=== PATIENT | male | born 1950 | race Caucasian/White ===

== ENCOUNTER 2017-12-22 10:38 | Inpatient (IN) | payer OTHER ==
[2017-12-22 10:47] VITALS: BMI 23.4
--- NOTE | 2017-12-22 12:36 | PDOC ---
History of Present Illness - General Chief Complaint: Weakness Stated Complaint: DIZZINESS Past History - Past Medical History Allergies/Adverse Reactions: Allergies Allergy/AdvReac Type Severity Reaction Status Date / Time No Known Allergies Allergy Verified 12/22/17 10:44 Home Medications: Ambulatory Orders Amox-Tr/K Cl [Augmentin 875-125mg Tablet -] 1 tab PO BID #14 tablet 09/26/13 Asthma: Yes COPD: No Other medical history: [place] - Suicide/Smoking/Psychosocial Hx Smoking History: Never smoked Have you smoked in the past 12 months: No Information on smoking cessation initiated: No Hx Alcohol Use: No Drug/Substance Use Hx: No Substance Use Type: None *Physical Exam - Vital Signs Last Vital Signs Temp Pulse Resp BP Pulse Ox 98.3 F 76 18 151/83 100 12/22/17 10:44 12/22/17 10:44 12/22/17 10:44 12/22/17 10:44 12/22/17 10:44
--- NOTE | 2017-12-22 12:37 | PDOC ---
Attending Attestation - HPI HPI: The patient is a 67 year old male accompanied with family friend with no significant past medical history who presents to the emergency department complaining of right sided weakness since Friday (12/20). 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 The patient reports chronic episodes of dizziness and numbness to the right side of the body and associated symptom of generalized weakness. The patient denies abdominal pain. The patient denies chest pain, shortness of breath, and headache. Denies fevers, chills, nausea, vomiting, diarrhea, and constipation. Denies dysuria, frequency, urgency, and hematuria. Allergies: NKA Social history: No reported cigarette, alcohol, or drug use. - Physicial Exam PE: Vitals: Triage Vital signs reviewed General Appearance: no acute distress, well nourished well developed, Head: Atraumatic, normocephalic Neck: Supple;No Nuchal rigidity Chest Wall: Nontender Cardiac: Regular rate and rhythm, no murmurs, no rubs, no gallops, Lungs: Clear to auscultation bilateral, good air movement bilaterally Abdomen: Soft, nondistended, normal bowel sounds, nontender to palpation Rectal: Exam deferred. 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 AOX3; Cranial Nerves 2-12 grossly c intact, Strength intact to all extremities, Sensation intact to all extremities, gait normal Psych: normal mood, normal affect - Medical Decision Making The patient is a 67 year old male accompanied with family friend with no significant past medical history who presents to the emergency department complaining of right sided weakness since Friday. Plan: -CAT SCAN -Lab -Consult with neurologist <Feliz Rhodes - Last Filed: 12/22/17 16:21> - Resident Resident Name: Jolanta Greenberg I - ED Attending Attestation I have performed the following: I have examined & evaluated the patient, The case was reviewed & discussed with the resident, I agree w/resident's findings & plan, Exceptions are as noted - Medical Decision Making Right-sided weakness since Friday patient with slightly unsteady gait on examination only focal neurologic finding was very slight decrease in right hand tunnel worker strength, slight difficulty with finger to nose and a subjective sensation of unsteadiness although patient ambulating steadily CT with evidence of small nonhemorrhagic infarct. We will observe overnight for neurology consultation and further management of small cerebellar stroke. full dose aspirin ordered <Beny Langford - Last Filed: 12/22/17 16:53> NIH Stroke Scale - Initial Evaluation Level of consciousness: Alert Ask patient the month and their age: Answers both correctly Ask patient to open & close eyes; make fist and let go: Obeys both correctly Best gaze (horizontal eye movement): Normal Visual field testing: No visual field loss Facial paresis (Show teeth/raise eyebrows/close eyes tight): Normal symmetrical movement Motor Function: Left Arm: Normal Motor Function: Right Arm: Normal (extends arm 90 (or 45) degrees for 10 seconds without drift Motor Function: Left Leg: Normal (extends leg 30 degrees for 5 seconds without drift) Motor Function: Right Leg: Normal (extends leg 30 degrees for 5 seconds without drift) Limb Ataxia: Present in one limb Sensory(Use pinprick test arms,legs,trunk,face/side to side): Normal Best language (Describe picture, name items, read sentences): No Aphasia Dysarthria (read several words): Normal articulation Extinction and Inattention: No abnormality - Total Score NIH Stroke Scale Score: 1 <Beny Langford - Last Filed: 12/22/17 16:53> Attestations - Attestations Documentation prepared by Feliz Rhodes, acting as senior medical billing specialist for Beny Langford MD. <Feliz Rhodes - Last Filed: 12/22/17 16:21> - Attestations Physician Attestation: 12/22/17 16:49 <Beny Langford - Last Filed: 12/22/17 16:53>
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
[2017-12-22 14:22] LABS: BASO % 1.1 % (0-2.0); EOS % 1.5 % (0-4.5); HEMATOCRIT 45.7 % (35.4-49); HEMOGLOBIN 15.8 GM/dL (11.7-16.9); LYMPH % 11.8 % (8-40); MCH 30.2 pg (25.7-33.7); MCHC 34.7 g/dl (32.0-35.9); MEAN CELL VOLUME 87.1 fl (80-96); MEAN PLT VOLUME 8.8 fl (7.5-11.1); MONO % 4.9 % (3.8-10.2); NEUT % 80.7 % (42.8-82.8); PLATELET COUNT 158 K/MM3 (134-434); RBC 5.24 M/mm3 (4.00-5.60); WHITE BLOOD COUNT 7.1 K/mm3 (4.0-10.0)
[2017-12-22 14:37] LABS: ALBUMIN 4.2 g/dl (3.4-5.0); ANION GAP 5 (8-16); BILIRUBIN,TOTAL 0.7 mg/dL (0.2-1.0); BLOOD UREA NITROGEN 17 mg/dL (7-18); CHLORIDE 108 mmol/L (98-107); CO2 28 mmol/L (21-32); CREATININE 1.1 mg/dL (0.7-1.3); GLUCOSE,RANDOM 107 mg/dL (74-106); SGOT/AST 15 U/L (15-37); SGPT/ALT 25 U/L (12-78); SODIUM 141 mmol/L (136-145); TOT PROT 7.2 g/dl (6.4-8.2)
[2017-12-22 14:39] LABS: CHOLESTEROL 238 mg/dL (50-200); TRIGLYCERIDES 82 mg/dL (35-160)
[2017-12-22 14:40] LABS: ALK PHOS 84 U/L (45-117)
[2017-12-22 14:42] LABS: HDL CHOLESTEROL 74 mg/dL (40-60)
[2017-12-22 14:43] LABS: INR 1.05 (0.82-1.09); PROTHROMBIN TIME (PATIENT) 11.9 SEC (9.98-11.88)
[2017-12-22] MEDS ORDERED: ASPIRIN 81 MG CHEWABLE TABLETS PO ONE (15:23)
[2017-12-22] MEDS ORDERED: ASPIRIN 81 MG CHEWABLE TABLETS ONE ×2 (16:27→17:30)
[2017-12-22] MEDS ORDERED: ASPIRIN 325 MG ENTERIC COATED TABLET (FP) PO ONE (17:00)
[2017-12-22 17:27] LABS: URINE APPEARANCE CLEAR; URINE BILIRUBIN NEGATIVE (<2.0 mg/dL); URINE COLOR STRAW; URINE GLUCOSE (UA) NEGATIVE (NEGATIVE); URINE KETONE NEGATIVE (NEGATIVE); URINE LEUK ESTERASE NEGATIVE (NEGATIVE); URINE NITRITE NEGATIVE (NEGATIVE); URINE PROTEIN NEGATIVE (NEGATIVE); URINE UROBILINOGEN NEGATIVE mg/dL (0.2-1.0)
--- NOTE | 2017-12-22 17:40 | CON.NEURO ---
Consult - Alcohol/Substance Use Hx Alcohol Use: No - Smoking History Smoking history: Never smoked Have you smoked in the past 12 months: No Home Medications - Allergies Allergies/Adverse Reactions: Allergies Allergy/AdvReac Type Severity Reaction Status Date / Time No Known Allergies Allergy Verified 12/22/17 10:44 - Home Medications Home Medications: Ambulatory Orders NK [No Known Home Medication] 12/22/17 Physical Exam-Neuro Vital Signs: Vital Signs Temperature 98.2 F 12/22/17 15:22 Pulse Rate 72 12/22/17 15:22 Respiratory Rate 16 12/22/17 15:22 Blood Pressure 165/81 12/22/17 15:22 O2 Sat by Pulse Oximetry (%) 97 12/22/17 15:22 Labs: CBC, BMP 12/22/17 13:49 12/22/17 13:49 INR, PTT INR 1.05 (0.82-1.09) 12/22/17 13:49 Assessment/Plan cc Difficulty with right arm weakness and slurring of speech. HPI 67 year old male , was interview with his girlfriend at his side He denies taking any medication on regular basis or any medical history in past. 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 He developed right sided weakness and also slurring of speech. He is from [facility]. He feels heis improving, and he lives with his girl friend. He also have recurrent dizziness, which he describes lightheadedness specially standing up. Patient has ct head and it was unremarkable and his nih score was zero as per the ED records. 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
--- NOTE | 2017-12-22 20:25 | HP ---
Admitting History and Physical - Primary Care Physician PCP: Patti Jimenes - Admission Chief Complaint: R side weakness, slurred speech History of Present Illness: 67 year old male accompanied with family friend with no significant past medical history who presents to the emergency department complaining of right sided weakness since Friday night (12/20). 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 The patient reports chronic episodes of dizziness and numbness to the right side of the body and associated symptom of generalized weakness. The patient denies abdominal pain. The patient denies chest pain, shortness of breath, and headache. Denies fevers, chills, nausea, vomiting, diarrhea, and constipation. Denies dysuria, frequency, urgency, and hematuria. - Smoking History Smoking history: Never smoked Have you smoked in the past 12 months: No - Alcohol/Substance Use Hx Alcohol Use: No Home Medications - Allergies Allergies/Adverse Reactions: Allergies Allergy/AdvReac Type Severity Reaction Status Date / Time No Known Allergies Allergy Verified 12/22/17 10:44 - Home Medications Home Medications: Ambulatory Orders Aspirin [ASA -] 81 mg PO DAILY #30 tab.chew 12/24/17 Atorvastatin Ca [Lipitor] 20 mg PO HS #30 tablet 12/24/17 Physical Examination Vital Signs: Vital Signs Temperature 98.4 F 12/22/17 18:39 Pulse Rate 86 12/22/17 18:39 Respiratory Rate 16 12/22/17 18:39 Blood Pressure 124/78 12/22/17 18:39 O2 Sat by Pulse Oximetry (%) 98 12/22/17 18:39 Constitutional: Yes: No Distress HENT: Yes: Atraumatic Neck: Yes: Supple Cardiovascular: Yes: Regular Rate and Rhythm Respiratory: Yes: CTA Bilaterally Gastrointestinal: Yes: Normal Bowel Sounds Extremities: Yes: WNL Edema: No Peripheral Pulses WNL: Yes Neurological: Yes: Alert, Oriented ...Motor Strength: RUE (12/18) Labs: CBC, BMP 12/22/17 13:49 12/22/17 13:49 Imaging - Results Cat Scan: Report Reviewed Problem List - Problems (1) CVA (cerebral vascular accident) Assessment/Plan: doing well speech better R arm little weak Code(s): I63.9 - CEREBRAL INFARCTION, UNSPECIFIED Qualifiers: CVA mechanism: unspecified Qualified Code(s): I63.9 - Cerebral infarction, unspecified (2) Weakness Assessment/Plan: R arm weakness,pt feels it but able to work with it Code(s): R53.1 - WEAKNESS Assessment/Plan Laboratory Tests 12/22/17 12/22/17 12/22/17 13:49 13:49 13:49 WBC 7.1 RBC 5.24 Hgb 15.8 D Hct 45.7 MCV 87.1 MCH 30.2 MCHC 34.7 RDW 14.0 Plt Count 158 MPV 8.8 Neutrophils % 80.7 Lymphocytes % 11.8 Monocytes % 4.9 Eosinophils % 1.5 Basophils % 1.1 PT with INR 11.90 H INR 1.05 Sodium 141 Potassium 4.0 Chloride 108 H Carbon Dioxide 28 Anion Gap 5 L BUN 17 D Creatinine 1.1 Creat Clearance w eGFR > 60 Random Glucose 107 H D Calcium 9.0 Total Bilirubin 0.7 D AST 15 D ALT 25 Alkaline Phosphatase 84 Creatine Kinase Creatine Kinase Index CK-MB (CK-2) Troponin I < 0.02 Total Protein 7.2 Albumin 4.2 Triglycerides Cholesterol Total LDL Cholesterol HDL Cholesterol Urine Color Urine Appearance Urine pH Ur Specific [place] Urine Protein Urine Glucose (UA) Urine Ketones Urine Blood Urine Nitrite Urine Bilirubin Urine Urobilinogen Ur Leukocyte Esterase Blood Type Antibody Screen 12/22/17 12/22/17 12/22/17 13:49 14:30 19:25 WBC RBC Hgb Hct MCV MCH MCHC RDW Plt Count MPV Neutrophils % Lymphocytes % Monocytes % Eosinophils % Basophils % PT with INR INR Sodium Potassium Chloride Carbon Dioxide Anion Gap BUN Creatinine Creat Clearance w eGFR Random Glucose Calcium Total Bilirubin AST ALT Alkaline Phosphatase Creatine Kinase 152 Creatine Kinase Index 1.4 CK-MB (CK-2) 2.150 Troponin I < 0.02 Total Protein Albumin Triglycerides 82 Cholesterol 238 H Total LDL Cholesterol 151 H HDL Cholesterol 74 H Urine Color Straw Urine Appearance Clear Urine pH 5.0 Ur Specific [place] 1.012 Urine Protein Negative Urine Glucose (UA) Negative Urine Ketones Negative Urine Blood Negative Urine Nitrite Negative Urine Bilirubin Negative Urine Urobilinogen Negative Ur Leukocyte Esterase Negative Blood Type B POSITIVE Antibody Screen Negative
[2017-12-22] MEDS: SODIUM CHLORIDE 1,000 ML IV SCH (20:40)
--- NOTE | 2017-12-22 23:42 | EKG ---
Test Reason : Blood Pressure : / mmHG Vent. Rate : 066 BPM Atrial Rate : 066 BPM P-R Int : 150 ms QRS Dur : 080 ms QT Int : 378 ms P-R-T Axes : 076 034 042 degrees QTc Int : 396 ms SINUS RHYTHM WITH PREMATURE SUPRAVENTRICULAR COMPLEXES OTHERWISE NORMAL ECG NO PREVIOUS ECGS AVAILABLE Confirmed by ELSIE MOREIRA, GREER ([id number]) on 12/22/2017 11:41:53 PM Referred By: Confirmed By:GREER ZIMMERMAN MD
[2017-12-23 08:03] LABS: MAGNESIUM 2.3 mg/dL (1.8-2.4); PHOSPHOROUS 3.2 mg/dL (2.5-4.9)
[2017-12-23] MEDS ORDERED: ASPIRIN 81 MG CHEWABLE TABLETS ONE (10:13)
[2017-12-23] MEDS: ASPIRIN 81 MG CHEWABLE TABLETS PO SCH (10:17)
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
--- NOTE | 2017-12-23 17:51 | PN ---
Progress Note (short form) - Note Progress Note: 67 year old male was brought to hospital by his grild friend for right arm weakness. He denies taking any medication on regular basis or any medical history in past. 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 He developed right sided weakness and also slurring of speech. He is from [facility]. He feels heis improving, and he lives with his girl friend. He also have recurrent dizziness. 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
--- NOTE | 2017-12-23 18:15 | PN ---
Progress Note, Physician - Current Medication List Current Medications: Active Medications Aspirin (Asa -) 81 mg PO DAILY [facility] Last Admin: 12/23/17 10:17 Dose: 81 mg Atorvastatin Calcium (Lipitor -) 20 mg PO [facility] Sodium Chloride (Normal Saline -) 1,000 mls @ 75 mls/hr IV ASDIR [facility] Last Admin: 12/22/17 20:40 Dose: 75 mls/hr - Objective Vital Signs: Vital Signs Temperature 98.3 F 12/23/17 07:18 Pulse Rate 65 12/23/17 16:07 Respiratory Rate 18 12/23/17 16:07 Blood Pressure 159/85 12/23/17 16:07 O2 Sat by Pulse Oximetry (%) 98 12/23/17 16:07 Constitutional: Yes: No Distress HENT: Yes: Atraumatic Neck: Yes: Supple Cardiovascular: Yes: Regular Rate and Rhythm Respiratory: Yes: CTA Bilaterally Gastrointestinal: Yes: Normal Bowel Sounds Extremities: Yes: WNL Labs: CBC, BMP 12/22/17 13:49 12/22/17 13:49 INR, PTT INR 1.05 (0.82-1.09) 12/22/17 13:49 Problem List - Problems (1) CVA (cerebral vascular accident) Assessment/Plan: doing well Code(s): I63.9 - CEREBRAL INFARCTION, UNSPECIFIED Qualifiers: CVA mechanism: unspecified Qualified Code(s): I63.9 - Cerebral infarction, unspecified (2) Weakness Assessment/Plan: R arm weakness, physical therapy Code(s): R53.1 - WEAKNESS
[2017-12-23] MEDS ORDERED: ATORVASTATIN CA 20 MG TABLET (FP) PO SCH (22:00)
[2017-12-23] MEDS: SODIUM CHLORIDE 1,000 ML IV SCH (23:02)
[2017-12-24] MEDS: SODIUM CHLORIDE 1,000 ML IV SCH (06:32)
[2017-12-24] MEDS ORDERED: PT OWN MED DRAWER 7, Y5N ONE (09:03)
[2017-12-24] MEDS ORDERED: INSULIN (LEVEMIR) 100 UNITS/ML UNITS SQ ONE (09:03)
--- NOTE | 2017-12-24 09:06 | PN ---
Progress Note (short form) - Note Progress Note: 67 year old male , came to hospital for right arm and leg weakness and slurring of speech. 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 He developed right sided weakness and also slurring of speech. His mri of brain showed left Basal ganglia infarct, carotid ultrasound was unremarkable. He is on aspirin and statin. 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 Plan- continue aspirin and statin speech note appreciated and planning to do Barium swallow Continue PT, speech and DVT prophylaxis Thanking you so much Mian Larios MD
[2017-12-24] MEDS: ASPIRIN 81 MG CHEWABLE TABLETS PO SCH (09:20)
[2017-12-24 12:20] VITALS: BP 142/81; PULSE 70; TEMP 98.4
--- NOTE | 2017-12-24 12:26 | DS ---
Physical Examination Vital Signs: Vital Signs Temperature 98.4 F 12/24/17 10:00 Pulse Rate 70 12/24/17 10:00 Respiratory Rate 18 12/24/17 10:00 Blood Pressure 142/81 12/24/17 10:00 O2 Sat by Pulse Oximetry (%) 98 12/24/17 10:00 Constitutional: Yes: No Distress HENT: Yes: Atraumatic Cardiovascular: Yes: Regular Rate and Rhythm Respiratory: Yes: CTA Bilaterally Gastrointestinal: Yes: Normal Bowel Sounds Extremities: Yes: WNL Neurological: Yes: Alert, Oriented Labs: CBC, BMP 12/22/17 13:49 12/22/17 13:49 Discharge Summary Reason For Visit: CVA Current Active Problems CVA (cerebral vascular accident) (Acute) Weakness (Acute) Condition: Stable - Instructions Disposition: HOME HEALTH CARE - Home Medications Comprehensive Discharge Medication List: Ambulatory Orders Aspirin [ASA -] 81 mg PO DAILY #30 tab.chew 12/24/17 Atorvastatin Ca [Lipitor] 20 mg PO HS #30 tablet 12/24/17
== END 2017-12-24 16:15 | disposition home health service (06) | DRG 65 ==
LOC: JER 10:38 → JERBED 15:52 → J4W 12-24 02:08
PROVIDERS: ADMIT Internal Medicine; ATTEND Internal Medicine
DX: I63.9 Cerebral infarction, unspecified (principal); G81.91 Hemiplegia, unspecified affecting right dominant side; R47.81 Slurred speech
CPT/HCPCS: 36415; 70450-TC; 70551-TC; 71045-TC-FY; 80053; 81003; 82465; 82550; 82553; 83718; 83721; 83735; 84100; 84478; 84484; 85025; 85610; 86850; 86900; 86901; 87086; 93005; 93010; 93306-TC; 93880-TC; 97116-GP; 97161-GP; 99285-25; J7030

== ENCOUNTER 2022-10-20 18:01 | Inpatient (IN) | payer OTHER ==
[2022-10-20] MEDS ORDERED: ADENOSINE 6 MG/2 ML VIAL IVPUSH ONE ×2 (18:16→18:23)
[2022-10-20] MEDS ORDERED: SODIUM CHLORIDE 0.9% 500 ML INFUS.BAG IV ONE (18:38)
[2022-10-20 18:45] LABS: BASO % 0.4 % (0-2.0); EOS % 2.6 % (0-4.5); HEMATOCRIT 41.9 % (35.4-49); HEMOGLOBIN 14.1 GM/dL (11.7-16.9); LYMPH % 15.1 % (8-40); MCH 29.1 pg (25.7-33.7); MCHC 33.6 g/dl (32.0-35.9); MEAN CELL VOLUME 86.7 fl (80-96); MEAN PLT VOLUME 8.1 fl (7.5-11.1); MONO % 9.7 % (3.8-10.2); NEUT % 72.2 % (42.8-82.8); PLATELET COUNT 162 10^3/uL (134-434); RBC 4.84 M/mm3 (4.00-5.60); RDW 14.9 % (11.9-15.9); WHITE BLOOD COUNT 5.4 K/mm3 (4.0-10.0)
[2022-10-20 19:01] LABS: CALCIUM 8.6 mg/dL (8.5-10.1)
[2022-10-20 19:02] LABS: ALBUMIN 3.6 g/dl (3.4-5.0); BLOOD UREA NITROGEN 18.8 mg/dL (7-18)
[2022-10-20 19:05] LABS: CREATININE 1.2 mg/dL (0.55-1.3)
[2022-10-20 19:06] LABS: TOT PROT 6.5 g/dl (6.4-8.2)
[2022-10-20 19:07] LABS: BILIRUBIN,TOTAL 1.1 mg/dL (0.2-1)
[2022-10-20 19:35] LABS: INR 1.2 (0.83-1.09); PROTHROMBIN TIME (PATIENT) 13.9 SEC (9.7-13.0)
[2022-10-21 02:02] LABS: OPIATES, URI NEGATIVE (NEGATIVE); PHENCYCLIDINE,URINE NEGATIVE (NEGATIVE); URINE BENZODIAZEPINES NEGATIVE (NEGATIVE)
[2022-10-21 02:28] LABS: COCAINE, UR NEGATIVE (NEGATIVE); METHADONE, UR NEGATIVE (NEGATIVE); URINE AMPHETAMINES NEGATIVE (NEGATIVE); URINE BARBITURATES NEGATIVE (NEGATIVE)
[2022-10-21 02:34] LABS: PH,URINE 6.5 (5.0-8.0); URINE APPEARANCE CLEAR; URINE BILIRUBIN NEGATIVE (NEGATIVE); URINE COLOR YELLOW; URINE GLUCOSE (UA) NEGATIVE (NEGATIVE); URINE KETONE NEGATIVE (NEGATIVE); URINE LEUK ESTERASE NEGATIVE (NEGATIVE); URINE NITRITE NEGATIVE (NEGATIVE); URINE PROTEIN NEGATIVE (NEGATIVE)
[2022-10-21] MEDS ORDERED: METOPROLOL TARTRATE 25 MG TABLET (FP) ONE (04:27)
[2022-10-21] MEDS: METOPROLOL TARTRATE 25 MG TABLET (FP) PO SCH ×3 (04:30→23:05)
[2022-10-21 08:13] LABS: BASO % 0.6 % (0-2.0); EOS % 6.9 % (0-4.5); HEMATOCRIT 39.9 % (35.4-49); MCH 29.8 pg (25.7-33.7); MEAN PLT VOLUME 8.2 fl (7.5-11.1); MONO % 9.5 % (3.8-10.2); PLATELET COUNT 161 10^3/uL (134-434); RBC 4.69 M/mm3 (4.00-5.60); RDW 14.8 % (11.9-15.9); WHITE BLOOD COUNT 4.3 K/mm3 (4.0-10.0)
[2022-10-21 08:36] LABS: ALBUMIN 3.2 g/dl (3.4-5.0); BLOOD UREA NITROGEN 14.8 mg/dL (7-18); CALCIUM 8.4 mg/dL (8.5-10.1); MAGNESIUM 2.1 mg/dL (1.8-2.4)
[2022-10-21 08:38] LABS: PHOSPHOROUS 3.2 mg/dL (2.5-4.9)
[2022-10-21 08:39] LABS: BILIRUBIN,TOTAL 0.9 mg/dL (0.2-1); TOT PROT 5.7 g/dl (6.4-8.2)
[2022-10-21] MEDS ORDERED: metoPROLOL SUCCINATE 25 MG TAB.SR.24H (FP) PO ONE (16:40)
[2022-10-22] MEDS: METOPROLOL TARTRATE 25 MG TABLET (FP) PO SCH ×2 (09:54→21:15)
[2022-10-23 03:35] VITALS: RESP 18
[2022-10-23 08:40] VITALS: BP 146/89; PULSE 66; TEMP 98.3
[2022-10-23] MEDS: METOPROLOL TARTRATE 25 MG TABLET (FP) PO SCH (09:09)
== END 2022-10-23 09:51 | disposition home or self-care (01) | DRG 309 ==
LOC: JER 18:01 → JERBED 23:53 → J4W 10-22 01:25
PROVIDERS: ADMIT Internal Medicine; ATTEND Internal Medicine
PROC: 5A2204Z Restoration of Cardiac Rhythm, Single (ICD-10-PCS; principal; 2022-10-20)
DX: I47.1 Supraventricular tachycardia (principal); I24.8 Other forms of acute ischemic heart disease; I69.351 Hemiplegia and hemiparesis following cerebral infarction affecting right dominant side; I10 Essential (primary) hypertension; E78.5 Hyperlipidemia, unspecified; K40.90 Unilateral inguinal hernia, without obstruction or gangrene, not specified as recurrent
CPT/HCPCS: 0241U-QW; 36415; 71045-TC-FY; 74177-TC; 76870-TC; 80053; 80307; 81003; 83036; 83735; 84100; 84484; 85025; 85610; 85730; 93005; 93010; 93306-TC; 99291; Q9967

== ENCOUNTER 2024-10-22 18:56 | Inpatient (IN) | payer OTHER ==
[2024-10-22 20:39] LABS: BASO % 1.8 % (0-2.0); EOS % 9.3 % (0-4.5); HEMATOCRIT 44.8 % (35.4-49); HEMOGLOBIN 15.3 GM/dL (11.7-16.9); LYMPH % 25.4 % (8-40); MCH 29.2 pg (25.7-33.7); MCHC 34.1 g/dl (32.0-35.9); MEAN CELL VOLUME 85.4 fl (80-96); MEAN PLT VOLUME 7.8 fl (7.5-11.1); NEUT % 56.5 % (42.8-82.8); PLATELET COUNT 179 10^3/uL (134-434); RBC 5.24 M/mm3 (4.00-5.60); RDW 14.4 % (11.9-15.9); WHITE BLOOD COUNT 6.2 K/mm3 (4.0-10.0)
[2024-10-22 20:46] LABS: INR 0.95 (0.83-1.09); PROTHROMBIN TIME (PATIENT) 10.5 SEC (9.7-13.0)
[2024-10-22 20:49] LABS: ACTIVATED PTT 29.6 SECONDS (25.2-36.5)
[2024-10-22] MEDS ORDERED: MECLIZINE HCL 25 MG TABLET (FP) ONE (20:49)
[2024-10-22] MEDS: MECLIZINE HCL 25 MG TABLET (FP) PO ONE (20:56)
[2024-10-22 20:57] LABS: URINE APPEARANCE CLEAR; URINE BILIRUBIN NEGATIVE (NEGATIVE); URINE COLOR YELLOW; URINE GLUCOSE (UA) NEGATIVE (NEGATIVE); URINE KETONE NEGATIVE (NEGATIVE); URINE LEUK ESTERASE NEGATIVE (NEGATIVE); URINE NITRITE NEGATIVE (NEGATIVE); URINE PROTEIN NEGATIVE (NEGATIVE)
[2024-10-22] MEDS: LACTATED RINGERS SOLUTION 1000 ML INFUS.BAG IV ONE (20:57)
[2024-10-22 21:05] LABS: POTASSIUM 4.2 mmol/L (3.5-5.1)
[2024-10-22 21:06] LABS: CALCIUM 9.2 mg/dL (8.5-10.1)
[2024-10-22 21:08] LABS: ALBUMIN 4.1 g/dl (3.4-5.0); BLOOD UREA NITROGEN 24.7 mg/dL (7-18); MAGNESIUM 2.2 mg/dL (1.8-2.4)
[2024-10-22 21:09] LABS: CHOLESTEROL 242 mg/dL (50-200)
[2024-10-22 21:10] LABS: CREATININE 1.2 mg/dL (0.55-1.3); PHOSPHOROUS 2.8 mg/dL (2.5-4.9)
[2024-10-22 21:11] LABS: LDL CHOLESTEROL (ONLY SJRH) 141 mg/dL (5-100)
[2024-10-22 21:12] LABS: BILIRUBIN,TOTAL 0.9 mg/dL (0.2-1); HDL CHOLESTEROL 75 mg/dL (40-60); TOT PROT 7.1 g/dl (6.4-8.2)
[2024-10-22] MEDS ORDERED: ATORVASTATIN CA 40 MG TABLET (FP) ONE (22:25)
[2024-10-22] MEDS ORDERED: ASPIRIN 81 MG CHEWABLE TABLETS ONE (22:26)
[2024-10-22] MEDS: ASPIRIN 81 MG CHEWABLE TABLETS PO ONE (22:30)
[2024-10-22] MEDS: ATORVASTATIN CA 40 MG TABLET (FP) PO ONE (22:30)
[2024-10-23] MEDS ORDERED: MECLIZINE HCL 25 MG TABLET (FP) PO PRN (03:00)
[2024-10-23 07:32] LABS: BASO % 1.5 % (0-2.0); EOS % 10.2 % (0-4.5); HEMATOCRIT 39.7 % (35.4-49); HEMOGLOBIN 13.4 GM/dL (11.7-16.9); LYMPH % 25.8 % (8-40); MCH 28.7 pg (25.7-33.7); MCHC 33.7 g/dl (32.0-35.9); MEAN CELL VOLUME 85.2 fl (80-96); MEAN PLT VOLUME 8.3 fl (7.5-11.1); MONO % 7.5 % (3.8-10.2); PLATELET COUNT 142 10^3/uL (134-434); RBC 4.66 M/mm3 (4.00-5.60); RDW 13.9 % (11.9-15.9)
[2024-10-23 07:45] LABS: POTASSIUM 3.8 mmol/L (3.5-5.1)
[2024-10-23 07:46] LABS: CALCIUM 8.8 mg/dL (8.5-10.1)
[2024-10-23 07:48] LABS: BLOOD UREA NITROGEN 23.8 mg/dL (7-18)
[2024-10-23] MEDS: METOPROLOL TARTRATE 25 MG TABLET (FP) PO SCH (10:54)
[2024-10-23] MEDS: ASPIRIN 81 MG CHEWABLE TABLETS PO SCH (10:54)
[2024-10-23 14:18] VITALS: BMI 20.5
[2024-10-23] MEDS: ATORVASTATIN CA 40 MG TABLET (FP) PO SCH (21:25)
[2024-10-26 02:43] VITALS: RESP 18
[2024-10-26 05:57] VITALS: BP 139/79; PULSE 61; TEMP 97.2
[2024-10-26] MEDS: CLOPIDOGREL BISULFATE 75 MG TABLET (FP) PO SCH (09:22)
== END 2024-10-26 16:16 | disposition home or self-care (01) | DRG 65 ==
LOC: JER 18:56 → JERBED 22:13 → J4W 10-23 00:18 → OBSVTOIN 10-23 15:52
PROVIDERS: ADMIT Student in an Organized Health Care Education/Training Program; ATTEND Family Medicine
DX: I63.89 Other cerebral infarction (principal); E44.0 Moderate protein-calorie malnutrition; I10 Essential (primary) hypertension; E78.5 Hyperlipidemia, unspecified; H91.93 Unspecified hearing loss, bilateral; N50.89 Other specified disorders of the male genital organs; R26.81 Unsteadiness on feet; R42 Dizziness and giddiness; K40.20 Bilateral inguinal hernia, without obstruction or gangrene, not specified as recurrent; J45.909 Unspecified asthma, uncomplicated; I35.0 Nonrheumatic aortic (valve) stenosis; K40.90 Unilateral inguinal hernia, without obstruction or gangrene, not specified as recurrent; Z68.20 Body mass index [BMI] 20.0-20.9, adult; Z86.79 Personal history of other diseases of the circulatory system
CPT/HCPCS: 0241U-QW; 36415; 70450-TC; 70551-TC; 71045-TC-FY; 80048; 80053; 80061; 81003; 82550; 82962; 83036; 83735; 84100; 84443; 84484; 85025; 85610; 85730; 86850; 86900; 86901; 87086; 93005; 93010; 93306-TC; 93880-TC; 99285-25; G0378

== ENCOUNTER 2024-11-17 20:33 | Inpatient (IN) | payer OTHER ==
[2024-11-17 20:46] VITALS: BMI 21.4
[2024-11-17] MEDS ORDERED: ADENOSINE 6 MG/2 ML VIAL IVPUSH ONE ×2 (21:08→21:29)
[2024-11-17] MEDS: ADENOSINE 6 MG/2 ML VIAL IVPUSH ONE (21:33)
[2024-11-17] MEDS: SODIUM CHLORIDE 0.9% 500 ML INFUS.BAG IV ONE (21:34)
[2024-11-17 21:37] LABS: BASO % 1.2 % (0-2.0); EOS % 8.8 % (0-4.5); HEMATOCRIT 44.1 % (35.4-49); HEMOGLOBIN 14.8 GM/dL (11.7-16.9); LYMPH % 19.1 % (8-40); MCH 28.9 pg (25.7-33.7); MCHC 33.5 g/dl (32.0-35.9); MEAN CELL VOLUME 86.3 fl (80-96); MEAN PLT VOLUME 8.3 fl (7.5-11.1); MONO % 7.2 % (3.8-10.2); NEUT % 63.7 % (42.8-82.8); PLATELET COUNT 182 10^3/uL (134-434); RBC 5.11 M/mm3 (4.00-5.60); RDW 14.2 % (11.9-15.9); WHITE BLOOD COUNT 7.7 K/mm3 (4.0-10.0)
[2024-11-17 21:44] LABS: INR 1.03 (0.83-1.09); PROTHROMBIN TIME (PATIENT) 11.2 SEC (9.7-13.0)
[2024-11-17 21:47] LABS: ACTIVATED PTT 30.1 SECONDS (25.2-36.5)
[2024-11-17 22:00] LABS: POTASSIUM 4.2 mmol/L (3.5-5.1)
[2024-11-17 22:01] LABS: CALCIUM 9.4 mg/dL (8.5-10.1)
[2024-11-17 22:02] LABS: ALBUMIN 4.1 g/dl (3.4-5.0); BLOOD UREA NITROGEN 24.3 mg/dL (7-18)
[2024-11-17 22:05] LABS: CREATININE 1.4 mg/dL (0.55-1.3)
[2024-11-17 22:06] LABS: BILIRUBIN,TOTAL 1.1 mg/dL (0.2-1)
[2024-11-17] MEDS ORDERED: DOCUSATE SODIUM 100 MG CAPSULE (FP) PO PRN (23:42)
[2024-11-18] MEDS ORDERED: CLOPIDOGREL BISULFATE 75 MG TABLET (FP) ONE (01:56)
[2024-11-18] MEDS ORDERED: METOPROLOL TARTRATE 25 MG TABLET (FP) ONE (01:56)
[2024-11-18] MEDS: CLOPIDOGREL BISULFATE 75 MG TABLET (FP) PO ONE (01:57)
[2024-11-18] MEDS: METOPROLOL TARTRATE 25 MG TABLET (FP) PO SCH (02:03)
[2024-11-18 08:14] LABS: POTASSIUM 4.1 mmol/L (3.5-5.1)
[2024-11-18 08:21] LABS: BASO % 1.4 % (0-2.0); HEMATOCRIT 37.9 % (35.4-49); HEMOGLOBIN 12.7 GM/dL (11.7-16.9); LYMPH % 16.8 % (8-40); MCH 28.7 pg (25.7-33.7); MCHC 33.4 g/dl (32.0-35.9); MEAN CELL VOLUME 85.9 fl (80-96); MEAN PLT VOLUME 8.4 fl (7.5-11.1); MONO % 7.7 % (3.8-10.2); NEUT % 62.1 % (42.8-82.8); PLATELET COUNT 143 10^3/uL (134-434); RBC 4.41 M/mm3 (4.00-5.60); RDW 13.7 % (11.9-15.9); WHITE BLOOD COUNT 5.5 K/mm3 (4.0-10.0)
[2024-11-18 08:30] LABS: BLOOD UREA NITROGEN 22.2 mg/dL (7-18)
[2024-11-18 08:34] LABS: CALCIUM 8.4 mg/dL (8.5-10.1); CREATININE 1.1 mg/dL (0.55-1.3); PHOSPHOROUS 3.2 mg/dL (2.5-4.9)
[2024-11-18 08:35] LABS: MAGNESIUM 2.3 mg/dL (1.8-2.4)
[2024-11-18] MEDS: ATORVASTATIN CA 40 MG TABLET (FP) PO SCH (22:36)
[2024-11-19 08:16] LABS: POTASSIUM 4.1 mmol/L (3.5-5.1)
[2024-11-19 08:26] LABS: CALCIUM 8.5 mg/dL (8.5-10.1)
[2024-11-19 08:27] LABS: BLOOD UREA NITROGEN 21.6 mg/dL (7-18); PHOSPHOROUS 2.9 mg/dL (2.5-4.9)
[2024-11-19 08:30] LABS: MAGNESIUM 2.2 mg/dL (1.8-2.4)
[2024-11-19] MEDS: CLOPIDOGREL BISULFATE 75 MG TABLET (FP) PO SCH (09:11)
[2024-11-19] MEDS: ASPIRIN 81 MG CHEWABLE TABLETS PO SCH (09:11)
[2024-11-22 08:07] LABS: CALCIUM 8.5 mg/dL (8.5-10.1)
[2024-11-22 08:08] LABS: ALBUMIN 3.5 g/dl (3.4-5.0); BLOOD UREA NITROGEN 20.5 mg/dL (7-18)
[2024-11-22 08:09] LABS: BASO % 1.2 % (0-2.0); EOS % 9.5 % (0-4.5); HEMATOCRIT 40.8 % (35.4-49); HEMOGLOBIN 13.9 GM/dL (11.7-16.9); LYMPH % 15.9 % (8-40); MCH 29.3 pg (25.7-33.7); MEAN CELL VOLUME 86.2 fl (80-96); MEAN PLT VOLUME 8.8 fl (7.5-11.1); MONO % 7.1 % (3.8-10.2); NEUT % 66.3 % (42.8-82.8); PLATELET COUNT 152 10^3/uL (134-434); RBC 4.74 M/mm3 (4.00-5.60); RDW 14.2 % (11.9-15.9)
[2024-11-22 08:10] LABS: POTASSIUM 4.4 mmol/L (3.5-5.1)
[2024-11-22 08:12] LABS: BILIRUBIN,TOTAL 1.3 mg/dL (0.2-1)
[2024-11-22 08:14] LABS: CREATININE 1.1 mg/dL (0.55-1.3); TOT PROT 6.1 g/dl (6.4-8.2)
[2024-11-22] MEDS ORDERED: REGADENOSON 0.4 MG/5 ML PRE-FILLED SYRINGE IVPUSH ONE (10:44)
[2024-11-22] MEDS: REGADENOSON 0.4 MG/5 ML PRE-FILLED SYRINGE IVPUSH ONE (11:15)
[2024-11-22 14:57] VITALS: RESP 18
[2024-11-22] MEDS: ACETAMINOPHEN 500 MG TABLET (FP) PO PRN (16:08)
[2024-11-23 06:08] VITALS: BP 134/65; PULSE 53; TEMP 97.9
== END 2024-11-23 08:28 | disposition home or self-care (01) | DRG 281 ==
LOC: JER 20:33 → JERBED 21:33 → J4W 11-18 03:46 → OBSVTOIN 11-20 13:45
PROVIDERS: ADMIT Family Medicine; ATTEND Family Medicine
DX: I21.4 Non-ST elevation (NSTEMI) myocardial infarction (principal); I47.10 Supraventricular tachycardia, unspecified; I10 Essential (primary) hypertension; K40.90 Unilateral inguinal hernia, without obstruction or gangrene, not specified as recurrent; J45.909 Unspecified asthma, uncomplicated; E78.5 Hyperlipidemia, unspecified; R79.89 Other specified abnormal findings of blood chemistry; Z86.73 Personal history of transient ischemic attack (TIA), and cerebral infarction without residual deficits
CPT/HCPCS: 0241U-QW; 36415; 71045-TC-FY; 78452-TC; 80048; 80053; 82962; 83735; 84100; 84439; 84443; 84484; 85025; 85610; 85730; 93005; 93010; 93017; 93306-TC; 99285-25; A9502; G0378; J2785

== ENCOUNTER 2025-01-10 05:50 | Day surgery (SDC) | payer OTHER ==
[2024-12-22 14:07] VITALS: BMI 21.4
[2025-01-10] MEDS ORDERED: LIDOCAINE HCL/PF 2% SDV 5ML VIAL ONE (10:40)
[2025-01-10] MEDS ORDERED: PROPOFOL 20 ML ONE (10:40)
[2025-01-10] MEDS ORDERED: SUCCINYLCHOLINE CHLORIDE 200 MG/10 ML SYRINGE ONE (10:41)
[2025-01-10] MEDS ORDERED: ROCURONIUM BROMIDE 50 MG/5 ML SYRINGE ONE (10:41)
[2025-01-10] MEDS ORDERED: MIDAZOLAM HCL 2 MG/2 ML SINGLE DOSE VIAL ONE (10:41)
[2025-01-10] MEDS ORDERED: KETOROLAC TROMETHAMINE 30 MG/1 ML VIAL ONE (12:37)
[2025-01-10] MEDS ORDERED: ceFAZolin SODIUM 1 GM VIAL ONE (12:37)
[2025-01-10] MEDS ORDERED: DEXAMETHASONE SOD PHOSPHATE 4 MG/1 ML VIAL ONE (12:37)
[2025-01-10] MEDS ORDERED: ONDANSETRON 4 MG/2 ML VIAL ONE ×2 (12:37→16:12)
[2025-01-10] MEDS: ceFAZolin 2 GRAM PREMIX BAG IVPB ONE ×2 (12:42)
[2025-01-10] MEDS: BUPIVACAINE HCL/PF 0.25% (2.5MG/ML) 10 ML VIAL IJ ONE ×2 (13:29)
[2025-01-10] MEDS ORDERED: ESMOLOL HCL 100,000 MCG/10 ML VIAL ONE (13:44)
[2025-01-10] MEDS ORDERED: HYDROmorphone HCl 2 MG/ML VIAL ONE (15:19)
[2025-01-10] MEDS ORDERED: DOCUSATE SODIUM 100 MG CAPSULE (FP) PO PRN (15:54)
[2025-01-10] MEDS ORDERED: NEOSTIGMINE METHYLSULFATE 0.5 MG/1 ML - 10 ML MDV ONE (16:07)
[2025-01-10] MEDS ORDERED: GLYCOPYRROLATE 0.2 MG/1 ML VIAL ONE (16:07)
[2025-01-10] MEDS ORDERED: ONDANSETRON 4 MG/2 ML VIAL IVPUSH PRN (16:30)
[2025-01-10] MEDS ORDERED: ACETAMINOPHEN INJECTION 100 ML ONE (18:42)
[2025-01-10] MEDS: ACETAMINOPHEN 1000 MG/100 ML BAG IVPB SCH (18:45)
[2025-01-10] MEDS: LACTATED RINGERS SOLUTION 1,000 ML IV SCH (18:45)
[2025-01-10] MEDS: ATORVASTATIN CA 40 MG TABLET (FP) PO SCH (21:48)
[2025-01-10] MEDS ORDERED: ACETAMINOPHEN 1000 MG/100 ML BAG IVPB SCH (22:00)
[2025-01-11] MEDS: PANTOPRAZOLE 40 MG TABLET PO SCH (09:22)
[2025-01-11] MEDS: LOSARTAN POTASSIUM 50 MG TABLET PO SCH (09:22)
[2025-01-11] MEDS: ASPIRIN 81 MG CHEWABLE TABLETS PO SCH (09:22)
[2025-01-11] MEDS: oxyCODONE HCL 5 MG TABLET PO PRN ×2 (09:26→15:41)
[2025-01-11 09:36] LABS: ABSOLUTE IMMATURE GRANULOCYTES 0.04 x10^3/uL (0.0-0.031); BASOPHILS # 0.03 x10^3/uL (0.01-0.08); EOSINOPHIL % 0.4 % (0.8-7.0); EOSINOPHILS # 0.04 x10^3/uL (0.04-0.54); HEMATOCRIT 37.6 % (40.1-51.0); HEMOGLOBIN 12.5 g/dL (13.7-17.5); MCHC 33.2 g/dl (32.3-36.5); MEAN CELL VOLUME 86.4 fl (79.0-92.2); MEAN PLT VOLUME 10.6 fl (9.4-12.4); MONOCYTE % 8.7 % (5.3-12.2); PLATELET COUNT 167 x10^3/uL (163-337); RDW 13.2 % (12.2-16.6)
[2025-01-11] MEDS ORDERED: PATIENT'S OWN MEDICATION (NON-FORMULARY) (Mirabegron [Myrbetriq] 25 MG Tab.Er.24h) PO SCH (10:00)
[2025-01-11 10:02] LABS: POTASSIUM 4.2 mmol/L (3.5-5.1)
[2025-01-11 10:16] LABS: BLOOD UREA NITROGEN 20.5 mg/dL (7-18); CALCIUM 8.8 mg/dL (8.5-10.1)
[2025-01-11 10:23] LABS: CREATININE 1.1 mg/dL (0.55-1.3)
[2025-01-11] MEDS: ACETAMINOPHEN 500 MG TABLET (FP) PO SCH (16:55)
[2025-01-12] MEDS: TAMSULOSIN HCL 0.4 MG CAP PO SCH (08:41)
[2025-01-12 13:02] VITALS: BP 122/60; PULSE 62; RESP 16; TEMP 98.8
== END 2025-01-12 09:15 | disposition home or self-care (01) ==
LOC: JASUSAT 05:50 → JASU-SURG 05:50 → SUATTDRO 05:50 → J6S 19:19 → JASUSAT 01-12 09:15
PROVIDERS: ATTEND Family Medicine
PROC: 0DQV4ZZ Repair Mesentery, Percutaneous Endoscopic Approach (ICD-10-PCS; principal; 2025-01-10 12:30)
DX: K40.20 Bilateral inguinal hernia, without obstruction or gangrene, not specified as recurrent (principal)
CPT/HCPCS: 49650; S2900; 36415; 80048; 82962; 85025; 94760; C1781; J0131